=== PATIENT | male | born 1965 | race Hispanic/Latino ===

== ENCOUNTER 2025-03-23 14:21 | Emergency (ER) | payer SELFPAY ==
[~2025-03-23] VITALS: Ht 165.1 cm; Wt 60.3 kg
[2025-03-23 14:22] VITALS: TEMP 98.5
--- NOTE | 2025-03-23 14:25 | ERN ---
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 NAIL IS INTACT. LAST TETANUS SHOT IS UNKNOWN. NO BLEEDING OR NO PRIMARY CARE DOCTOR Allergies: Coded Allergies: No Known Drug Allergies (Unverified Allergy, Unknown, 03/23/25) Past Medical History RN Note Reviewed/Agreed w/PFSH: Yes Review of System Dictation CONSTITUTIONAL: NEGATIVE EXCEPT FOR HPI HEAD/FACE: NEGATIVE EXCEPT FOR HPI EENT: NEGATIVE EXCEPT FOR HPI RESPIRATORY: NEGATIVE EXCEPT FOR HPI GASTROINTESTINAL/ABDOMINAL: NEGATIVE EXCEPT FOR HPI GENITOURINARY: NEGATIVE EXCEPT FOR HPI MUSCULOSKELETAL: NEGATIVE EXCEPT FOR HPI DISTAL LACERATION TO LEFT 2ND MEDIAL ASPECT FINGER INTEGUMENTARY: NEGATIVE EXCEPT FOR HPI NEUROLOGICAL/PSYCH: NEGATIVE EXCEPT FOR HPI HEMATOLOGIC/LYMPHATIC: NEGATIVE EXCEPT FOR HPI ALL SYSTEMS NEGATIVE, EXCEPT NOTED ABOVE. 13 POINT REVIEW OF SYSTEMS ASSESSED AND ALL NEGATIVE EXCEPT FOR ABOVE. Initial Vital Sign VS Vital Signs Date Time Temp Pulse Resp B/P (MAP) Pulse Ox O2 Delivery O2 Flow Rate FiO2 03/23/25 14:22 98.4 99 16 142/89 99 Room Air 0 Physical Exam Dictation VITAL SIGNS REVIEWED MODERATE ACUTE DISTRESS, WELL DEVELOPED, NOURISHED. HEAD AND FACE: NON-TRAUMATIC. EYES: PERRL, PINK CONJUNCTIVAS, EYELID NO TRAUMA, ANTERIOR CHAMBER WITH ARCUS SENILIS. EARS: PINNAS INTACT AND NO SIGNS OF TRAUMA OR ERYTHEMA EAR CANALS CLEAR AND NO DISCHARGE TM NO ERYTHEMA NOSE: NO DISCHARGE, NO BLEEDING. OROPHARYNX: MOUTH NORMAL, TONGUE PINK, PHARYNX CLEAR,NO ERYTHEMA, TONSILS NO EXUDATES, NO ABSCESSES NOTED, MUCOUS MEMBRANE MOIST NECK: SUPPLE, NON-TENDER, NO THYROMEGALY, NO MASSES, NO JVD, NO BRUITS BREAST:DEFERRED CHEST:NO TENDERNESS, NO CREPITUS, NO PARADOXICAL MOVEMENT, NO RETRACTIONS LUNGS:CLEAR, WELL-VENTILATED, SYMMETRIC, NO RALES, NO WHEEZING, NO RHONCHI, NO STRIDOR, GOOD BREATH SOUNDS BILATERALLY HEART: REGULAR RATE, REGULAR RHYTHM, NO MURMUR, NO GALLOPS VASCULAR: NO PERIPHERAL EDEMA, ABDOMEN: SOFT, POSITIVE BOWEL SOUNDS, NONDISTENDED, NO GUARDING, NONTENDER, NO REBOUND, NO MASSES NO HEPATOMEGALY, NO SPLENOMEGALY, NO BUSH'S SIGN, NO HERNIAS. RECTAL: DEFERRED GENITAL: DEFERRED NEUROLOGICAL: NORMAL SPEECH, MOTOR FUNCTION INTACT, SENSORY FUNCTION INTACT MUSCULOSKELETAL: NECK NONTENDER, FULL RANGE OF MOTION, BACK NONTENDER, FULL RANGE OF MOTION, EXTREMITIES: NONTENDER, FULL RANGE OF MOTION SKIN: COLOR PINK, LACERATION TO DISTAL PHALANX OF LEFT 2ND FINGER. NAIL IS INTACT APPROXIMATELY 3 CM LYMPHATIC: DEFERRED Results (Laboratory/Radiology) Laboratory/Radiology LEFT HAND X-RAY [id number]/LEFT HAND X-RAY DEMONSTRATES DISTAL PHALANX FRACTURE EXAM: XR Hand, 3 Views. CLINICAL HISTORY: DISTAL LEFT 2ND FINGER LACERATION. RULE OUT BONY INVOLVEMEN COMPARISON: None provided. FINDINGS: BONES: A small fissure fracture is seen at the tip of the distal phalanx of the 2nd finger. JOINTS: No dislocation. The joint spaces are normal. SOFT TISSUES: Nearby 2nd finger distal end medial aspect subcutaneous edema consequent with hematoma. IMPRESSION: 1. A small fissure fracture is seen at the tip of the distal phalanx of the 2nd finger with nearby medial aspect subcutaneous edema consequent with hematoma. /[place] [facility] Reviewed?: Yes ED Course ED Course Orders Procedure Category Date Status Time Hand 3+Vws Lt RAD 03/23/25 Resulted 14:23 Ibuprofen 800 Mg Tab PHA 03/23/25 Complete (Motrin) 14:30 Neomy PHA 03/23/25 Complete Sulf/Bacitra/Polymyxin 14:30 Tetanus,Diphtheria PHA 03/23/25 Complete Tox [Adult] (Diphther 14:30 Cephalexin 500 Mg PHA 03/23/25 Complete Capsule (Keflex 500 Mg 14:30 Lidocaine Hcl 1% 20ml PHA 03/23/25 Complete Vial (Lidocaine Hc 14:30 Current Medications Medications (Trade) Dose Ordered Sig/Stephanie Route PRN Reason Start Time Stop Time Status Last Admin Dose Admin Cephalexin (Keflex 500 MG CAPS) 1,000 mg ONCE ONCE PO 03/23/25 14:30 03/23/25 14:37 DC 03/23/25 15:25 Ibuprofen (moTRIN) 800 mg ONCE ONCE PO 03/23/25 14:30 12/14/25 14:37 DC 03/23/25 15:26 Lidocaine HCl (Lidocaine HCl 1% 20ml Vial) 10 ml ONCE ONCE INJ 03/23/25 14:30 03/23/25 14:37 DC 03/23/25 15:26 Neomycin/ Polymyxin/ Bacitracin (Triple Antibiotic Ointment) 1 appl ONCE ONCE TP 03/23/25 14:30 03/23/25 14:37 DC 03/23/25 15:25 Tetanus/ Diphtheria Toxoids Adsorbed (DiphthERIA-teTANUS TOXOID [ADULT]/ DECAVAC) 0.5 ml ONCE ONCE IM 03/23/25 14:30 03/23/25 14:37 DC 03/23/25 15:29 Vital Signs Date Time Temp Pulse Resp B/P (MAP) Pulse Ox O2 Delivery O2 Flow Rate FiO2 03/23/25 14:22 98.4 99 16 142/89 99 Room Air 0 1612/SPOKE WITH PATIENT IN HIS FRIEND AT BEDSIDE WHO IS SWISS-SPEAKING. PATIENT WAS MADE AWARE THAT HE HAS A DISTAL PHALANX FRACTURE AND A PICTURE WAS SHOWN TO THE PATIENT AND HIS FRIEND LACERATION WAS REPAIRED AND KEFLEX WAS INITIATED PATIENT IS STRONGLY ADVISED TO FOLLOW UP WITH A AN ORTHOPEDIC SURGEON IN THE NEXT SEVERAL DAYS TAKE ANTIBIOTICS DIRECTED KEEP CLEAN AND DRY AND NO WORK UNTIL CLEARED BY HIS DOCTOR WITH A LEFT HAND Medical Decision Making MDM MEDICAL DISCHARGE MAKING BASED ON TETANUS UPDATE, X-RAY OF LEFT HAND KEFLEX 1 G WAS GIVEN P.O. PROPHYLACTICALLY PATIENT HAS A DISTAL PHALANX FRACTURE OF THE LEFT 2ND FINGER WOUND WAS CLOSED MUCH POSSIBLE WITH FIVE 4-0 PROLENE SIMPLE INTERRUPTED SUTURES NO BLEEDING AT THIS TIME PATIENT WAS TOLD TO NOT REMOVE DRESSING UNTIL SEEN BY ORTHOPEDICS IN THE NEXT ONE TWO DAYS. HE WILL BE PROVIDED THE NAME OF DR. TIMOTHY SOLIS Procedure Procedure Dictation: 1600/PROCEDURE EXPLAINED TO PATIENT HE AGREED TO PROCEED RIGHT PROXIMAL INDEX FINGER WAS PREPPED ASEPTICALLY WITH BETADINE AND WOUND CLEANSER USED 4 ML LIDOCAINE 1% PLAIN FOR DIGITAL BLOCK PATIENT HAS A DISTAL SKIN AVULSION WITH A LACERATION THAT RUNS IMMEDIATELY DOWN THE THE FINGER FROM THE PROXIMAL 2ND PHALANX TO THE MIDDLE OF THE 3RD PHALANX. APPROXIMATELY 4.5 CM LONG EDGES A VERY JAGGED AND CONTUSED LACERATION WAS APPROXIMATED WITH FIVE 4-0 PROLENE SIMPLE INTERRUPTED UNABLE TO APPROXIMATE COMPLETELY DUE TO NATURE OF THE INJURY AND DEBRIDED SKIN SINGLE-LAYER CLOSURE PATIENT TOLERATED WELL DX & DISP Disposition: Discharge Departure Impression: Primary Impression: Laceration of index finger without foreign body without damage to nail Additional Impressions: Crushing injury of left index finger, initial encounter, Fracture of distal phalanx of left index finger Condition: Stable Scripts Ibuprofen (Ibuprofen 800 mg Tab) 800 Mg Tab 800 MG PO Q8H PRN for fever or pain, #30 TAB 0 Refills Prov: MADISON WITT 03/23/25 Cephalexin (Cephalexin) 500 Mg Tablet 1 TAB PO QID for 10 Days, #40 TAB 0 Refills Prov: MADISON WITTP 03/23/25 Additional Instructions: FOLLOW-UP WITH PRIMARY CARE PROVIDER IN 1 TO 2 DAYS. TAKE MEDICATIONS DIRECTED HERE IN THE EMERGENCY ROOM. OKAY TO CONTINUE HOME MEDICATIONS UNLESS OTHERWISE DISCUSSED DURING YOUR VISIT IN THE EMERGENCY ROOM TODAY. RETURN TO YOUR NEAREST EMERGENCY ROOM IF SYMPTOMS WORSEN OR IF THERE IS NO IMPROVEMENT. CALL 911 IF YOU NEED IMMEDIATE ASSISTANCE. TAKE TYLENOL OR MOTRIN [id number] NEEDED AND IF NO CONTRAINDICATIONS ARE PRESENT. INCREASE ORAL HYDRATION. A WOUND CULTURE OR URINE CULTURE WAS ORDERED HERE IN THE EMERGENCY ROOM DEPARTMENT PLEASE FOLLOW-UP WITH PRIMARY CARE PROVIDER AND ADVISE THEM TO GET REPEAT PORTS FROM OUR FACILITY. IF YOU HAD ANY LAURA WRAP/SPLINTS THAT WERE APPLIED HERE, PLEASE DO NOT REMOVE THEM UNTIL YOU SEE YOUR PRIMARY CARE OR SPECIALTY. KEEP LEFT HAND LACERATION REPAIR CLEAN AND DRY. DO NOT REMOVE DRESSING UNTIL SEEN BY YOUR ORTHOPEDIC SURGEON, CALL FOR AN APPOINTMENT ON MONDAY. TAKE ANTIBIOTICS DIRECTED UNTIL GONE. TAKE IBUPROFEN NEEDED FOR PAIN WITH FOOD. NO WORK WITH THE YOUR LEFT HAND UNTIL CLEARED BY YOUR ORTHOPEDIC SURGEON. Referrals: TIMOTHY SOLIS MD Time of Disposition: 16:13 I have reviewed the case, and I agree with, Diagnosis and Plan MADISON WITTP Mar 23, 2025 14:25
--- NOTE | 2025-03-23 14:26 | NUR ---
PT JUST NOW PLACED IN MY ED BED 11
--- NOTE | 2025-03-23 14:42 | NUR ---
PT HAND PLACED IN TUB W/BETADINE AND SALINE. LAC TRAY, 4X4 GAUZE, STERILE GLOVES AND LIDO AT BEDSIDE. MADISON GONZALES INFORMED.
--- NOTE | 2025-03-23 15:24 | HMCIMG ---
EXAM: XR Hand, 3 Views. CLINICAL HISTORY: DISTAL LEFT 2ND FINGER LACERATION. RULE OUT BONY INVOLVEMEN COMPARISON: None provided. FINDINGS: BONES: A small fissure fracture is seen at the tip of the distal phalanx of the 2nd finger. JOINTS: No dislocation. The joint spaces are normal. SOFT TISSUES: Nearby 2nd finger distal end medial aspect subcutaneous edema consequent with hematoma. IMPRESSION: 1. A small fissure fracture is seen at the tip of the distal phalanx of the 2nd finger with nearby medial aspect subcutaneous edema consequent with hematoma. /[place]
[2025-03-23] MEDS: NEOMY SULF/BACITRA/POLYMYXIN B 1 EACH PACKET TP ONE (15:25)
[2025-03-23] MEDS: LIDOCAINE HCL 1% 20 ML VIAL INJ ONE (15:26)
[2025-03-23 16:34] VITALS: BP 114/64; PULSE 80; RESP 17; O2SAT 99
== END 2025-03-23 17:07 | disposition home or self-care (01) ==
LOC: EDH 14:21
DX: S62.631A Displaced fracture of distal phalanx of left index finger, initial encounter for closed fracture (principal); S61.211A Laceration without foreign body of left index finger without damage to nail, initial encounter; W23.0XXA Caught, crushed, jammed, or pinched between moving objects, initial encounter; Y93.89 Activity, other specified; Y92.89 Other specified places as the place of occurrence of the external cause; Y99.8 Other external cause status
CPT/HCPCS: 99283; 90714; 73130; 90471; 12002; J2003